=== PATIENT | female | born 1955 | race African-American/Black ===

== ENCOUNTER 2018-04-10 12:17 | Emergency (ER) | payer MEDICAID, OTHER ==
[~2018-04-10] VITALS: Ht 170.2 cm; Wt 122.5 kg
[~2018-04-10 12:17] MED LIST: ALBUTEROL SULF8.5 GM INH; CIPRO500 MG PO; GABAPENTIN300 MG ORAL; HYDROCHLOROTHIA25 MG ORAL; IBUPROFEN600 MG ORAL; IBUPROFEN800 MG ORAL; LOSARTAN POTASS50 MG ORAL; LYRICA75 M1 ORAL; PREDNISONE20 MG ORAL; VALIUM10 MG ORAL; VALIUM5 MG ORAL; VENTOLIN HFA18 GM INH; VICODIN 5-5001 EACH ORAL
[2018-04-10] MEDS ORDERED: AMLODIPINE BESY10 MG ORAL (12:33)
[2018-04-10] MEDS ORDERED: GABAPENTIN600 MG ORAL (12:33)
[2018-04-10] MEDS ORDERED: HYDROcodone/Acetamin 7.5/325 tab ORAL ONE (12:45)
--- NOTE | 2018-04-10 13:16 | Diagnostic Imaging Report ---
EXAM: XR Right Knee, 3 views CLINICAL HISTORY: PAIN TECHNIQUE: Three views of the right knee. COMPARISON: No relevant prior studies available. FINDINGS: Bones/joints: No visible displaced fracture. No dislocation. No osseous erosions. Mild degenerative narrowing, most prominent along the medial tibiofemoral compartment and the patellofemoral compartment. Visualized joint spaces otherwise appear unremarkable. Soft tissues: Unremarkable. No radiodense foreign bodies. No soft tissue gas lucencies. IMPRESSION: 1. No acute fracture or dislocation. 2. Mild tricompartment degenerative changes, most prominent in the medial tibiofemoral compartment and patellofemoral compartment.
--- NOTE | 2018-04-10 13:17 | Diagnostic Imaging Report ---
EXAM: XR Left Shoulder Complete, 2 or More Views CLINICAL HISTORY: PAIN TECHNIQUE: Two or more views of the left shoulder. COMPARISON: No relevant prior studies available. FINDINGS: Bones/joints: No visible fracture or dislocation. Normal alignment at the left glenohumeral and acromioclavicular joints. Mild degenerative changes at the left acromioclavicular joint. Soft tissues: Unremarkable. IMPRESSION: No acute fracture or dislocation. Mild degenerative changes in the left acromioclavicular joint.
--- NOTE | 2018-04-10 13:31 | Emergency Room Report ---
History of Present Illness General Chief Complaint: Pain Source: Patient Present Illness HPI 62-year-old female presents to the emergency department complaining of 10 out of 10 in severity progressive onset right knee, and left shoulder pain 2 weeks. Patient prefers denies trauma or fall but then she remembered starting to fall out of her chair 2 weeks ago but she caught herself for the most part. Patient states that about around the time that her pain started. Patient denies swelling in the affected extremity she does report some swelling in the right hand along the second to third knuckles. Patient states that this has happened multiple times in the past that swells up she again is having some pain in the pain and swelling resolve on their own. She reports only past medical history is high blood pressure she denies diabetes she reports some neuropathy. He states she has an appointment with her PCP on Thursday ( in 2 days ). Denies numbness tingling or loss of sensation or gross motor movements of the extremities, incontinence of bowel or bladder. Denies CP, Palpitations, LOC , AMS, dizziness, Changes in Vision, weakness or a sudden severe headache. Allergies: Coded Allergies: No Known Allergies (Unverified , 06/18/13) Patient History Past Medical History: see triage record Past Surgical History: none Pertinent Family History: none Last Menstrual Period: Unk date Now: No Reviewed Nursing Documentation: PMH: Agreed; PSxH: Agreed Nursing Documentation-PMH Hx Hypertension: Yes Review of Systems All Other Systems: negative except mentioned in HPI Physical Exam Vital Signs Date Time Temp Pulse Resp B/P (MAP) Pulse Ox O2 Delivery O2 Flow Rate FiO2 04/10/18 12:30 98.4 99 22 165/80 94 Room Air 98.4 Sp02 EP Interpretation: reviewed, normal General Appearance: no apparent distress, alert, GCS 15, non-toxic Head: normocephalic, atraumatic Eyes: bilateral eye normal inspection, bilateral eye PERRL ENT: hearing grossly normal, normal voice Neck: full range of motion Respiratory: lungs clear, normal breath sounds, speaking full sentences Cardiovascular #1: regular rate, rhythm, normal capillary refill Rectal: deferred Musculoskeletal: back normal, gait/station normal, normal range of motion, swelling - right knuckles, no tenderness, no erythema or bruising. pt. reports is recurrent., tender - TTP to the anterior right knee and the anteriolateral left shoulder, FROM of shoulder no clicking or deformity. Pt. has pain with right knee flexion, no instability noted, no obvious deformity, swelling or erythema Neurologic: alert, oriented x3, responsive, motor strength/tone normal, sensory intact, speech normal, grossly normal Psychiatric: judgement/insight normal Skin: normal color, no rash, warm/dry, well hydrated Lymphatic: no adenopathy Medical Decision Making PA Attestation Dr. Conroy is my supervising Physician whom patient management has been discussed with. Diagnostic Impression: Primary Impression: Shoulder pain, left Qualified Codes: M25.512 - Pain in left shoulder Additional Impressions: Knee pain, right Qualified Codes: M25.561 - Pain in right knee Degenerative joint disease involving multiple joints on both sides of body ER Course 62-year-old female presents to the emergency department complaining of 10 out of 10 in severity progressive onset right knee, and left shoulder pain 2 weeks. Patient prefers denies trauma or fall but then she remembered starting to fall out of her chair 2 weeks ago but she caught herself for the most part. Patient states that about around the time that her pain started. Patient denies swelling in the affected extremity she does report some swelling in the right hand along the second to third knuckles. Patient states that this has happened multiple times in the past that swells up she again is having some pain in the pain and swelling resolve on their own. She reports only past medical history is high blood pressure she denies diabetes she reports some neuropathy. He states she has an appointment with her PCP on Thursday ( in 2 days ). Denies numbness tingling or loss of sensation or gross motor movements of the extremities, incontinence of bowel or bladder. Denies CP, Palpitations, LOC , AMS, dizziness, Changes in Vision, weakness or a sudden severe headache. Ddx considered but are not limited to Fracture, dislocation, contusion, Sprain/ Strain/Spasm, RA, tendonitis, knee effusion , rotator cuff injury just to name a few. Vital signs: are WNL, pt. is afebrile H&PE are most consistent with musculoskeletal injury will perform imaging to r/ o fractures/dislocations. ORDERS: - X-rays Left Shoulder 3 views, and Right knee 3 views - negative for fx, Dislocation, or significant soft tissue injury, per preliminary read in ED, and signed by GUI Perrin, my supervising physician has reviewed, and agrees with my interpretation. ED INTERVENTIONS: - Medical [place] PO - Marcelo wrap applied by electronic warfare technical. Pt. remains neurovascularly intact. --Patient is provided with a cane and instructed on their use DISCHARGE: At this time pt. is stable for d/c to home. Will provide printed patient care instructions, and any necessary prescriptions. Care plan and follow up instructions have been discussed with the patient prior to discharge. Other X-Ray Diagnostic Results Other X-Ray Diagnostic Results #1: X-Ray ordered: Left SHoulder # of Views/Limited Vs Complete: 3 View Indication: Pain EP Interpretation: Yes GUI Xray: Interpretation reviewed, by supervising MD, and agrees with findings. Interpretation: no dislocation, no fractures, other - mild DJD Electronically Signed by: Jessy Perrin PA-C Other X-Ray Diagnostic Results #2: X-Ray ordered: Right Knee # of Views/Limited Vs Complete: 3 View Indication: Pain EP Interpretation: Yes PA Xray: Interpretation reviewed, by supervising MD, and agrees with findings. Interpretation: no dislocation, no soft tissue swelling, no fractures Impression: No acute disease Electronically Signed by: Jessy Perrin PA-C Last Vital Signs Date Time Temp Pulse Resp B/P (MAP) Pulse Ox O2 Delivery O2 Flow Rate FiO2 04/10/18 12:44 98.4 04/10/18 12:30 99 22 165/80 94 Room Air Disposition: HOME, SELF-CARE Condition: Stable Scripts Hydrocodone Bit/Acetaminophen 7.5-325* (NORCO 7.5-325*) 1 Each Tablet 1 TAB ORAL Q6H PRN for For Pain, #10 TAB 0 Refills Prov: Jessy Perrin 04/10/18 Patient Instructions: Joint Pain, Knee Pain, [id number], Shoulder Pain, Easy- to-Read Additional Instructions: Take medications as directed. Follow up with a Primary Care Provider in 3-5 days, and evaluate for DJD vs. RA even if your symptoms have resolved. --Please review list of primary care clinics, if you do not already have a primary care provider Return sooner to ED if new symptoms occur, or current symptoms become worse. Do not drink alcohol, drive, or operate heavy machinery while taking [facility] [place] as this may cause drowsiness. - Please note that this Emergency Department Report was dictated using Dragon academic support center director technology software, occasionally this can lead to erroneous entry secondary to interpretation by the dictation equipment. Jessy Perrin Apr 10, 2018 13:31
[2018-04-10] MEDS ORDERED: NORCO 7.5-3251 EACH ORAL (13:33)
[2018-04-10 14:12] VITALS: BP 172/91
== END 2018-04-10 14:12 | disposition home or self-care (01) ==
LOC: EMR 12:43
DX: M25.512 Pain in left shoulder (principal); M25.561 Pain in right knee; M15.9 Polyosteoarthritis, unspecified; I10 Essential (primary) hypertension
CPT/HCPCS: 99284

== ENCOUNTER 2018-11-24 17:19 | Emergency (ER) | payer MEDICAID ==
[~2018-11-24] VITALS: Ht 170.2 cm; Wt 77.1 kg
[~2018-11-24 17:19] MED LIST changes: +AMLODIPINE BESY10 MG ORAL; +GABAPENTIN600 MG ORAL; +NORCO 7.5-3251 EACH ORAL
[2018-11-24 17:25] VITALS: BP 187/87
--- NOTE | 2018-11-24 18:10 | NUR ---
ED Nurse Note: Pt came in due to discharge coming from her bellybutton and lower bad. pain for over a week. Denies fever at home. Noted redness and discharge from her belly button at this time.
--- NOTE | 2018-11-24 19:15 | Emergency Room Report ---
History of Present Illness General Chief Complaint: General Complaint Source: Patient Present Illness HPI 63-year-old female presents to the emergency department complaining of 8 out of 10 in severity pain, tenderness described as burning sensation, discharge coming from the umbilicus as times one week. Patient reports history of diabetes she states she is not her sugar regularly. Patient denies fevers or chills she reports attempts to clean with a Q-tip however she states that area of tenderness his been progressive in size. Patient denies bleeding. Denies rashes or lesions elsewhere on the skin. She states she has not applied any medications to the area. palpation aggravates pain, no relieving factors. pt. takes metformin. denies abdominal pain, nausea, vomiting, constipation or diarrhea. reports malodor to the d/c. Pt. denies fevers, chills or swollen tender lymph nodes. Denies lesions/rashes elsewhere on the body. Denies new medications or body washes or creams. Denies swelling of the lips, tongue , throat or airway. Denies wheezing, or shortness of breath. Denies recent travel , recent illness or ill contacts. denies blisters, oral lesions, or sloughing of the skin Allergies: Coded Allergies: No Known Allergies (Unverified , 06/18/13) Patient History Past Medical History: see triage record Past Surgical History: none Pertinent Family History: none Last Menstrual Period: 10 YEARS Now: No Reviewed Nursing Documentation: PMH: Agreed; PSxH: Agreed Nursing Documentation-PMH Past Medical History: No History, Except For Hx Hypertension: Yes Hx Diabetes: Yes - TYPE 2 Review of Systems All Other Systems: negative except mentioned in HPI Physical Exam Vital Signs Date Time Temp Pulse Resp B/P (MAP) Pulse Ox O2 Delivery O2 Flow Rate FiO2 11/24/18 17:25 98.4 80 16 187/87 91 Room Air Sp02 EP Interpretation: reviewed, normal General Appearance: no apparent distress, alert, GCS 15, non-toxic Head: normocephalic, atraumatic Eyes: bilateral eye normal inspection, bilateral eye PERRL ENT: hearing grossly normal, normal voice Neck: full range of motion Respiratory: lungs clear, normal breath sounds, speaking full sentences Cardiovascular #1: regular rate, rhythm Gastrointestinal: normal bowel sounds, non tender, soft, other - macerated appearance of the umbillicus with foul odorous thin white d/c. erythema noted. no blisters or vessicles. Rectal: deferred Genitourinary: normal inspection Musculoskeletal: back normal, gait/station normal, normal range of motion, non- tender Neurologic: alert, oriented x3, responsive, motor strength/tone normal, sensory intact, speech normal, grossly normal Psychiatric: judgement/insight normal Skin: normal color, warm/dry, well hydrated, rash - macerated appearance of the umbillicus with foul odorous thin white d/c. erythema noted. no blisters or vessicles. Lymphatic: no adenopathy Medical Decision Making PA Attestation Dr. Conroy is my supervising Physician whom patient management has been discussed with. Diagnostic Impression: Primary Impression: Cellulitis Qualified Codes: L03.818 - Cellulitis of other sites Additional Impression: Yeast dermatitis ER Course 63-year-old female presents to the emergency department complaining of 8 out of 10 in severity pain, tenderness described as burning sensation, discharge coming from the umbilicus as times one week. Patient reports history of diabetes she states she is not her sugar regularly. Patient denies fevers or chills she reports attempts to clean with a Q-tip however she states that area of tenderness his been progressive in size. Patient denies bleeding. Denies rashes or lesions elsewhere on the skin. She states she has not applied any medications to the area. palpation aggravates pain, no relieving factors. pt. takes metformin. denies abdominal pain, nausea, vomiting, constipation or diarrhea. reports malodor to the d/c. Pt. denies fevers, chills or swollen tender lymph nodes. Denies lesions/rashes elsewhere on the body. Denies new medications or body washes or creams. Denies swelling of the lips, tongue , throat or airway. Denies wheezing, or shortness of breath. Denies recent travel , recent illness or ill contacts. denies blisters, oral lesions, or sloughing of the skin Ddx considered but are not limited to cellulitis, scabies, shingles, varicella, dermatitis, urticaria, eczema, tinea, viral exanthem, SJS Vital signs: are WNL, pt. is afebrile H&PE are most consistent with cellulitis and most likely yeast dermatitis. ORDERS: none required at this time, the diagnosis is clinical ED INTERVENTIONS: None required at this time. DISCHARGE: At this time pt. is stable for d/c to home. Will provide printed patient care instructions, and any necessary prescriptions. Care plan and follow up instructions have been discussed with the patient prior to discharge. Last Vital Signs Date Time Temp Pulse Resp B/P (MAP) Pulse Ox O2 Delivery O2 Flow Rate FiO2 11/24/18 18:10 76 18 Room Air 11/24/18 17:25 98.4 187/87 91 Disposition: HOME, SELF-CARE Condition: Stable Referrals: Dominic Gutierrez MD (PCP) Patient Instructions: Cellulitis, [id number], Skin Yeast Infection Additional Instructions: Take medications as directed. * gentle cleaning with warm water daily, no other products. Follow up with a Primary Care Provider in 3-5 days, even if your symptoms have resolved. --Please review list of primary care clinics, if you do not already have a primary care provider Return sooner to ED if new symptoms occur, or current symptoms become worse. - Please note that this Emergency Department Report was dictated using [employer]ified [employer] remover technology software, occasionally this can lead to erroneous entry secondary to interpretation by the dictation equipment. Jessy Perrin Nov 24, 2018 19:15
[2018-11-24] MEDS ORDERED: CEPHALEXIN500 MG ORAL (19:19)
[2018-11-24] MEDS ORDERED: FLUCONAZOLE100 MG ORAL (19:19)
[2018-11-24] MEDS ORDERED: MUPIROCIN22 GM TOPIC (19:19)
[2018-11-24] MEDS ORDERED: NYSTATIN15 GM TOPIC (19:19)
[2018-11-24 19:35] VITALS: BP 160/88
--- NOTE | 2018-11-24 19:36 | NUR ---
ED Nurse Note: pt discharge instruction provided w/ prescription, pt education done via discussion and hand out, wrist band removed, pt advised to follow up with pcp in 2-3 days, pt verbalized understanding and agrees with plan, vss, ambulatory w/steady gait, resp even and unlabored.
== END 2018-11-24 19:37 | disposition home or self-care (01) ==
LOC: EMR 18:31
DX: L03.316 Cellulitis of umbilicus (principal); L30.8 Other specified dermatitis; I10 Essential (primary) hypertension; E11.9 Type 2 diabetes mellitus without complications
CPT/HCPCS: 99282

== ENCOUNTER 2019-02-16 17:39 | Emergency (ER) | payer MEDICAID ==
[~2019-02-16] VITALS: Ht 170.2 cm; Wt 124.7 kg
[~2019-02-16 17:39] MED LIST changes: +CEPHALEXIN500 MG ORAL; +FLUCONAZOLE100 MG ORAL; +MUPIROCIN22 GM TOPIC; +NYSTATIN15 GM TOPIC
--- NOTE | 2019-02-16 18:10 | NUR ---
ED Nurse Note:urine sent to labs
--- NOTE | 2019-02-16 18:34 | NUR ---
ED Nurse Note:blood sent to labs
[2019-02-16 18:40] LABS: APPEARANCE,URINE SLIGHTLY CLOUDY; BILIRUBIN, URINE NEGATIVE (NEGATIVE); GLUCOSE, URINE (UA) NEGATIVE (NEGATIVE); KETONES,URINE NEGATIVE (NEGATIVE); LEUKOCYTE ESTERASE ,URINE 3+ (NEGATIVE); NITRITE,URINE POSITIVE (NEGATIVE); PH,URINE 5 (4.5-8.0); PROTEIN,URINE 3+ (NEGATIVE); UROBILINOGEN,URINE NORMAL MG/DL (0.0-1.0)
[2019-02-16 18:42] LABS: COLOR,URINE YELLOW
[2019-02-16 18:45] VITALS: BP 189/86
[2019-02-16 18:53] LABS: BASOPHILS % (AUTO) 1.6 % (0.0-2.0); EOSINOPHILS % (AUTO) 3.7 % (0.0-3.0); HEMATOCRIT 40.8 % (37.0-47.0); HEMOGLOBIN 12.9 G/DL (12.0-16.0); LYMPHOCYTES % (AUTO) 22.3 % (20.0-45.0); MEAN CORPUSCULAR VOLUME 73 FL (80-99); MONOCYTES % (AUTO) 5.7 % (1.0-10.0); NEUTROPHILS % (AUTO) 66.7 % (45.0-75.0); PLATELET COUNT 279 K/UL (150-450); RED BLOOD COUNT 5.56 M/UL (4.20-5.40); WHITE BLOOD COUNT 11.6 K/UL (4.8-10.8)
[2019-02-16 18:54] LABS: ANION GAP 9 mmol/L (5-15); BLOOD UREA NITROGEN 13 mg/dL (7-18); CALCIUM 9.7 MG/DL (8.5-10.1); CARBON DIOXIDE 26 MMOL/L (21-32); CHLORIDE 100 MMOL/L (98-107); CREATININE 0.9 MG/DL (0.55-1.30); POTASSIUM 3.8 MMOL/L (3.5-5.1); SODIUM 135 MMOL/L (136-145)
[2019-02-16] MEDS ORDERED: cefTRIAXone 1 GM in NS 55 ML IVPB ONE (19:00)
--- NOTE | 2019-02-16 19:01 | Emergency Room Report ---
History of Present Illness General Chief Complaint: Female Urogenital Problems Source: Patient Present Illness HPI Patient presents with complaints of burning and discomfort with urination she also saw some evidence of blood in her urine patient was having increased cramping in the suprapubic area Also felt some discomfort lower back and presents to the ER She reports that her blood pressure medication makes her urinate more and as she was already urinating more frequently she did not take her medications today Denies any chest pain or shortness of breath denies any flank pain denies any fevers or rash Allergies: Coded Allergies: No Known Allergies (Unverified , 06/18/13) Patient History Past Medical History: see triage record Pertinent Family History: none Reviewed Nursing Documentation: PMH: Agreed; PSxH: Agreed Nursing Documentation-PMH Hx Hypertension: Yes Hx Diabetes: Yes - TYPE 2 Review of Systems All Other Systems: negative except mentioned in HPI Physical Exam Vital Signs Date Time Temp Pulse Resp B/P (MAP) Pulse Ox O2 Delivery O2 Flow Rate FiO2 02/16/19 17:57 98.1 89 16 198/109 94 Room Air Sp02 EP Interpretation: reviewed, normal General Appearance: well appearing, no apparent distress Head: normocephalic, atraumatic Eyes: bilateral eye PERRL, bilateral eye EOMI ENT: hearing grossly normal, normal pharynx, TMs + canals normal, uvula midline Neck: full range of motion, supple, no meningismus, no bony tend Respiratory: lungs clear, normal breath sounds, no rhonchi, no respiratory distress, no retraction, no accessory muscle use Cardiovascular #1: normal peripheral pulses, regular rate, rhythm, no edema, no gallop, no JVD, no murmur Gastrointestinal: normal bowel sounds, non tender, soft, no mass, no organomegaly, non-distended, no guarding, no hernia, no pulsatile mass, no rebound Genitourinary: no CVA tenderness Musculoskeletal: normal inspection Neurologic: oriented x3, responsive, director religious education III-XII nml as tested, motor strength/ tone normal, sensory intact Psychiatric: mood/affect normal Skin: normal color, no rash, warm/dry, palpation normal Lymphatic: normal inspection, no adenopathy Medical Decision Making Diagnostic Impression: Primary Impression: UTI (urinary tract infection) ER Course Given the patient's history and presentation multiple differentials and consideration Patient required extensive blood work Urine sample also at this time shows significant infection Patient provided with further IV hydration and antibiotics we did discuss further imaging also possible further inpatient care However the patient reports that she feels significantly better and does not want to be admitted to the hospital We will have initial conservative outpatient trial Labs Test 02/16/19 18:00 02/16/19 18:20 Urine Color Yellow Urine Appearance Slightly cloudy Urine pH 5 (4.5-8.0) Urine Specific Quinter 1.015 (1.005-1.035) Urine Protein 3+ (NEGATIVE) Urine Glucose (UA) Negative (NEGATIVE) Urine Ketones Negative (NEGATIVE) Urine Blood 5+ (NEGATIVE) Urine Nitrite Positive (NEGATIVE) Urine Bilirubin Negative (NEGATIVE) Urine Urobilinogen Normal MG/DL (0.0-1.0) Urine Leukocyte Esterase 3+ (NEGATIVE) Urine RBC 5-10 /HPF (0 - 2) Urine WBC 2-4 /HPF (0 - 2) Urine Squamous Epithelial Cells Few /LPF (NONE/OCC) Urine Amorphous Sediment Few /LPF (NONE) Urine Bacteria Few /HPF (NONE) White Blood Count 11.6 K/UL (4.8-10.8) Red Blood Count 5.56 M/UL (4.20-5.40) Hemoglobin 12.9 G/DL (12.0-16.0) Hematocrit 40.8 % (37.0-47.0) Mean Corpuscular Volume 73 FL (80-99) Mean Corpuscular Hemoglobin 23.1 PG (27.0-31.0) Mean Corpuscular Hemoglobin Concent 31.5 G/DL (32.0-36.0) Red Cell Distribution Width 14.0 % (11.6-14.8) Platelet Count 279 K/UL (150-450) Mean Platelet Volume 6.3 FL (6.5-10.1) Neutrophils (%) (Auto) 66.7 % (45.0-75.0) Lymphocytes (%) (Auto) 22.3 % (20.0-45.0) Monocytes (%) (Auto) 5.7 % (1.0-10.0) Eosinophils (%) (Auto) 3.7 % (0.0-3.0) Basophils (%) (Auto) 1.6 % (0.0-2.0) Sodium Level 135 MMOL/L (136-145) Potassium Level 3.8 MMOL/L (3.5-5.1) Chloride Level 100 MMOL/L (98-107) Carbon Dioxide Level 26 MMOL/L (21-32) Anion Gap 9 mmol/L (5-15) Blood Urea Nitrogen 13 mg/dL (7-18) Creatinine 0.9 MG/DL (0.55-1.30) Estimat Glomerular Filtration Rate > 60 mL/min (>60) Glucose Level 192 MG/DL (74-106) Calcium Level 9.7 MG/DL (8.5-10.1) Total Bilirubin 0.3 MG/DL (0.2-1.0) Aspartate Amino Transf (AST/SGOT) 13 U/L (15-37) Alanine Aminotransferase (ALT/SGPT) 24 U/L (12-78) Alkaline Phosphatase 122 U/L (46-116) Total Creatine Kinase 147 U/L (26-308) Creatine Kinase MB 2.6 NG/ML (0.0-3.6) Creatine Kinase MB Relative Index 1.7 Troponin I 0.006 ng/mL (0.000-0.056) Total Protein 8.2 G/DL (6.4-8.2) Albumin 3.3 G/DL (3.4-5.0) Globulin 4.9 g/dL Albumin/Globulin Ratio 0.7 (1.0-2.7) Lipase 85 U/L (73-393) Rhythm Strip Diag. Results EP Interpretation: yes Rate: 60 Rhythm: NSR, no PVC's, no ectopy Chest X-Ray Diagnostic Results Chest X-Ray Diagnostic Results : Chest X-Ray Ordered: Yes # of Views/Limited/Complete: 1 View Indication: Chest Pain EP Interpretation: Yes Interpretation: no consolidation, no effusion, no pneumothorax Impression: No acute disease Electronically Signed by: Barney Jerry DO Last Vital Signs Date Time Temp Pulse Resp B/P (MAP) Pulse Ox O2 Delivery O2 Flow Rate FiO2 02/16/19 18:45 98.1 88 23 189/86 99 Room Air Status: improved Disposition: HOME, SELF-CARE Condition: Improved Scripts Phenazopyridine Hcl* (PYRIDIUM*) 100 Mg Tablet 100 MG ORAL THREE TIMES A DAY for 5 Days, TAB Prov: Barney Jerry DO 02/16/19 Cephalexin* (KEFLEX*) 500 Mg Capsule 500 MG ORAL EVERY 6 HOURS for 10 Days, CAP Prov: Barney Jerry DO 02/16/19 Additional Instructions: Patient is provided with the discharge instructions notified to follow up with primary doctor in the next 2-3 days otherwise return to the er with any worsening symptoms. Please note that this report is being documented using DRAGON technology. This can lead to erroneous entry secondary to incorrect interpretation by the dictating instrument. Barney Jerry DO Feb 16, 2019 19:01
[2019-02-16 19:07] LABS: ALANINE AMINOTRANSFERASE 24 U/L (12-78); ALBUMIN 3.3 G/DL (3.4-5.0); ALBUMIN/GLOBULIN RATIO 0.7 (1.0-2.7); ALKALINE PHOSPHATASE 122 U/L (46-116); ASPARTATE AMINO TRANSFERASE 13 U/L (15-37); BILIRUBIN,TOTAL 0.3 MG/DL (0.2-1.0); CKMB 2.6 NG/ML (0.0-3.6); CREATINE KINASE 147 U/L (26-308)
[2019-02-16] MEDS ORDERED: CEPHALEXIN500 MG ORAL (19:35)
[2019-02-16] MEDS ORDERED: PHENAZOPYRIDIN100 MG ORAL (19:35)
[2019-02-16 19:45] VITALS: BP 164/73
--- NOTE | 2019-02-16 19:45 | NUR ---
ER DISCHARGE NOTE: Patient is cleared to be discharged per ERMD, pt is aox4, on room air, with stable vital signs. pt was given dc and prescription instructions, pt was able to verbalize understanding, pt id band and iv site removed without complications. pt is able to ambulate with steady gait. pt took all belongings.
--- NOTE | 2019-02-17 11:55 | Diagnostic Imaging Report ---
Indication: Chest pain Technique: XRAY Chest 1v Comparison: 10/18/2016 Findings: Heart size and mediastinal contours are within normal limits stable compared to the prior exam. There is no focal consolidation, pneumothorax or pleural effusion. Osseous structures demonstrate no acute abnormality. Impression: No radiographic evidence of acute cardiopulmonary disease.
== END 2019-02-16 19:45 | disposition home or self-care (01) ==
LOC: EMR 18:23
DX: N39.0 Urinary tract infection, site not specified (principal); E11.9 Type 2 diabetes mellitus without complications; I10 Essential (primary) hypertension; M54.5 Low back pain; R31.9 Hematuria, unspecified
CPT/HCPCS: 36415; 71045; 80053; 81003; 82550; 82553; 83690; 84484; 85025; 93005; 96365; 99284; J0696

== ENCOUNTER 2019-09-08 17:33 | Emergency (ER) | payer MEDICAID, OTHER ==
[~2019-09-08] VITALS: Ht 167.6 cm; Wt 122.5 kg
[~2019-09-08 17:33] MED LIST changes: +PHENAZOPYRIDIN100 MG ORAL
[2019-09-08] MEDS ORDERED: Aspirin Baby 81mg ORAL ONE (18:00)
--- NOTE | 2019-09-08 18:02 | Emergency Room Report ---
History of Present Illness General Chief Complaint: Chest Pain Source: Patient, Medical Record Present Illness HPI Disclaimer: Please note that this report is being documented using DRAGON technology. This can lead to erroneous entry secondary to incorrect interpretation by the dictating instrument. HPI: 64-year-old female with a history of hypertension, hyperlipidemia, diabetes , obesity presents for evaluation of chest pain. Symptoms began this morning and probably 6:30 AM while the patient was getting out of bed. She notes a sharp midsternal chest pain that sometimes radiates the left and exacerbated by movements of the upper extremities, bending and twisting motions and moving around in general. Denies any squeezing sensation. She notes intermittent shortness of breath and recent exertional dyspnea making it harder for her to walk her usual amount and gets winded going up and down the stairs. Denies any lower extremity swelling, recent long distance travel, immobilization, surgery, coagulopathies. No family history of heart disease. Does not smoke cigarettes. No prior incidences of similar chest pain. Has not had a cardiac work-up ever. PMH: Hypertension, hyperlipidemia, obesity, diabetes PSH: Denies Allergies: Denies Social Hx: Denies drug, alcohol or tobacco use Allergies: Coded Allergies: No Known Allergies (Unverified , 06/18/13) Nursing Documentation-PMH Past Medical History: No History, Except For Hx Hypertension: Yes Hx Diabetes: Yes - TYPE 2 Review of Systems All Other Systems: negative except mentioned in HPI Physical Exam Vital Signs Date Time Temp Pulse Resp B/P (MAP) Pulse Ox O2 Delivery O2 Flow Rate FiO2 09/08/19 17:42 97.9 73 18 178/95 (122) 99 Room Air General: Awake and alert, no acute distress HEENT: NC/AT. EOMI. PERRLA. Moist mucous membranes Neck: Supple, trachea midline Chest Wall: Tender to palpation over the sternum and anterior chest wall without deformity, no crepitus Cardiovascular: RRR. S1 and S2 normal. No murmur appreciated Resp: Normal work of breathing. No cough, wheezing or crackles appreciated Abdomen: Abdomen is soft, obese, nondistended. Nontender Skin: Intact. No abrasions, laceration or rash over the exposed skin MSK: Normal tone and bulk. Moving all extremities. No obvious deformity. Neuro: Awake and alert. Mentating appropriately. Medical Decision Making ER Course 64-year-old female presents for evaluation of chest pain beginning early this morning. The pain is reproducible and exacerbated by motion. There has been recent exertional dyspnea that is relieved by rest but the patient is not discussed with her PMD. There is no associated cough though it is pleuritic in nature. Differential includes but is not limited to URI, ACS, unstable angina, CHF, costochondritis, pulmonary embolism, pleurisy, pneumonia, GERD. Will start broad metabolic infectious and cardiac work-up. Will send a d-dimer though the patient is low risk for PE and DVT. Laboratory Tests Test 09/08/19 18:02 White Blood Count 9.6 K/UL (4.8-10.8) Red Blood Count 5.33 M/UL (4.20-5.40) Hemoglobin 12.7 G/DL (12.0-16.0) Hematocrit 40.1 % (37.0-47.0) Mean Corpuscular Volume 75 FL (80-99) L Mean Corpuscular Hemoglobin 23.9 PG (27.0-31.0) L Mean Corpuscular Hemoglobin Concent 31.8 G/DL (32.0-36.0) L Red Cell Distribution Width 12.7 % (11.6-14.8) Platelet Count 269 K/UL (150-450) Mean Platelet Volume 6.7 FL (6.5-10.1) Neutrophils (%) (Auto) 54.6 % (45.0-75.0) Lymphocytes (%) (Auto) 32.1 % (20.0-45.0) Monocytes (%) (Auto) 7.6 % (1.0-10.0) Eosinophils (%) (Auto) 4.5 % (0.0-3.0) H Basophils (%) (Auto) 1.1 % (0.0-2.0) D-Dimer 1.21 mg/L FEU (0.00-0.49) H Sodium Level 141 MMOL/L (136-145) Potassium Level 3.8 MMOL/L (3.5-5.1) Chloride Level 105 MMOL/L (98-107) Carbon Dioxide Level 28 MMOL/L (21-32) Anion Gap 8 mmol/L (5-15) Blood Urea Nitrogen 14 mg/dL (7-18) Creatinine 0.7 MG/DL (0.55-1.30) Estimate Glomerular Filtration Rate > 60 mL/min (>60) Glucose Level 216 MG/DL (74-106) H Calcium Level 9.3 MG/DL (8.5-10.1) Total Bilirubin 0.2 MG/DL (0.2-1.0) Aspartate Amino Transferase (AST) 12 U/L (15-37) L Alanine Aminotransferase (ALT) 28 U/L (12-78) Alkaline Phosphatase 142 U/L (46-116) H Troponin I 0.000 ng/mL (0.000-0.056) Pro-B-Type Natriuretic Peptide 533 pg/mL (0-125) H Total Protein 7.3 G/DL (6.4-8.2) Albumin 3.2 G/DL (3.4-5.0) L Globulin 4.1 g/dL Albumin/Globulin Ratio 0.8 (1.0-2.7) L EKG Diagnostic Results EKG Time: 17:59 Rate: normal Rhythm: NSR ST Segments: no acute changes Other Impression Sinus rhythm, normal axis, normal intervals, no ST segment changes. Rhythm Strip Diag. Results Rhythm Strip Time: 17:59 EP Interpretation: yes Rate: 60s Rhythm: NSR, no PVC's, no ectopy Chest X-Ray Diagnostic Results Chest X-Ray Diagnostic Results : Chest X-Ray Ordered: Yes # of Views/Limited/Complete: 1 View Indication: Chest Pain Interpretation: no consolidation, no effusion, no pneumothorax, no acute cardiopulmonary disease Impression: No acute disease Electronically Signed by: Electronically signed by Dr. Yarely Vides CT/MRI/US Diagnostic Results CT/MRI/US Diagnostic Results : Impression [facility] Patient: FREDERIC LYNN (Female) Age: 64 MR #: [id number] Status: ER Date: 09/08/19 19:55 Slices: 0 History: PE Priors: Tech: Exam request generated by [employer] interface Exams: CTA CHEST With Contrast Referring Luisa: DINORA^YARELY Ordering Phy: Yarely Vides MD Contrast: Accession Numbers: [id number], [id number] Preliminary Findings Only See Final Report For Complete Findings CTA CHEST With Contrast: No pulmonary embolus. No thoracic aortic dissection or aneurysm. Patchy groundglass opacities within the central right lower lobe which may be inflammatory or infectious. No pleural effusion or pneumothorax. Heart and pericardium are unremarkable. Subcentimeter mediastinal and hilar lymph nodes, likely reactive. No acute osseous abnormality. Radiologist: Kenyon Joshi MD Study ready at 20:08 and initial results transmitted at 20:16 *This report constitutes a preliminary interpretation only. Non-acute findings felt to be unrelated to the clinical presentation may not be discussed in this report. The study will be interpreted and a final report will be generated by the local Radiologist the following shift. To reach the hospital radiology department call [phone]. If a discrepancy is found between the preliminary and final interpretations of this study, please notify us via our Client Portal at [email or web address]. You can also fax this report with a description of the discrepancy, or include the final report, to our daytime fax number [phone]. If faxing, please indicate the severity of discrepancy using one of the following categories: [ ] 1 - Agree/Informational [ ] 2 - Unlikely to Affect Management [ ] 3 - Possible Eventual Change of Management [ ] 4 - Probable Immediate Change of Management For all other patient related information, please fax us at [phone] Reevaluation Time: 20:15 Last Vital Signs Date Time Temp Pulse Resp B/P (MAP) Pulse Ox O2 Delivery O2 Flow Rate FiO2 09/08/19 17:42 97.9 73 18 178/95 (122) 99 Room Air Reevaluation Impression Labs had returned largely within normal limits with a negative troponin however the d-dimer was elevated above our normal limit. A CTA of the chest was obtained which showed no evidence of pulmonary embolism or aortic dissection/ aneurysm but did show possible patchy groundglass opacities which may be inflammatory or infectious. The patient denies any systemic signs of infection and is elected not to be treated with antibiotics at this time. Her chest wall remains tender to palpation. Believe this is a musculoskeletal chest pain as the patient's EKG, chest x-ray, labs are reassuring. She does have some risk factors but can be followed up as an outpatient. Heart score is 3. I notified her PMD that she was in the emergency department today and can follow-up as an outpatient. Will prescribe NSAIDs. We discussed reasons to return to the emergency department. She understands and agrees with this treatment plan. Disposition: HOME, SELF-CARE Condition: Stable Scripts Acetaminophen* (ACETAMINOPHEN 325MG TABLET*) 325 Mg Tablet 650 MG ORAL Q4H PRN for For Pain, #30 TAB Prov: Yarely Vides MD 09/08/19 Ibuprofen* (MOTRIN*) 600 Mg Tablet 600 MG ORAL Q6H, #30 TAB 0 Refills Prov: Yarely Vides MD 09/08/19 Yarely Vides MD Sep 08, 2019 18:02
[2019-09-08 18:11] VITALS: BP 178/95
--- NOTE | 2019-09-08 18:17 | NUR ---
ED Nurse Note: Patient walked in to ER due to epigastric pain 04/11. States that has this pain almost a wee. AAO x4, VSS at this time, skin is warm to touch. Patient was placed in the gown, connected to the monitor.
[2019-09-08 18:28] LABS: BASOPHILS % (AUTO) 1.1 % (0.0-2.0); EOSINOPHILS % (AUTO) 4.5 % (0.0-3.0); HEMATOCRIT 40.1 % (37.0-47.0); HEMOGLOBIN 12.7 G/DL (12.0-16.0); LYMPHOCYTES % (AUTO) 32.1 % (20.0-45.0); MEAN CORPUSCULAR VOLUME 75 FL (80-99); MONOCYTES % (AUTO) 7.6 % (1.0-10.0); NEUTROPHILS % (AUTO) 54.6 % (45.0-75.0); PLATELET COUNT 269 K/UL (150-450); RED BLOOD COUNT 5.33 M/UL (4.20-5.40); RED CELL DISTRIBUTION WIDTH 12.7 % (11.6-14.8); WHITE BLOOD COUNT 9.6 K/UL (4.8-10.8)
[2019-09-08 18:43] LABS: ANION GAP 8 mmol/L (5-15); BLOOD UREA NITROGEN 14 mg/dL (7-18); CALCIUM 9.3 MG/DL (8.5-10.1); CARBON DIOXIDE 28 MMOL/L (21-32); CHLORIDE 105 MMOL/L (98-107); CREATININE 0.7 MG/DL (0.55-1.30); POTASSIUM 3.8 MMOL/L (3.5-5.1); SODIUM 141 MMOL/L (136-145)
[2019-09-08 18:57] LABS: ALANINE AMINOTRANSFERASE 28 U/L (12-78); ALBUMIN 3.2 G/DL (3.4-5.0); ALBUMIN/GLOBULIN RATIO 0.8 (1.0-2.7); ALKALINE PHOSPHATASE 142 U/L (46-116); ASPARTATE AMINO TRANSFERASE 12 U/L (15-37); BILIRUBIN,TOTAL 0.2 MG/DL (0.2-1.0)
[2019-09-08] MEDS ORDERED: Omnipaue 350mg/ml 100ml vial INJ PRN (19:15)
[2019-09-08 20:11] VITALS: BP 174/98
--- NOTE | 2019-09-08 20:17 | Diagnostic Imaging Report ---
Indication: Chest pain Technique: Continuous helical transaxial imaging of the chest was obtained from the thoracic inlet to the upper abdomen during rapid intravenous contrast administration. Arterial phase of enhancement obtained. Coronal 2-D reformats were also obtained and maximum intensity projection images in multiple planes. Study obtained in a Siemens sensation [address] Automatic Exposure Control was utilized. Total Dose length Product (DLP): 816.[address] Dose Index Volume (CTDIvol): 124.5 mGy Comparison: None Findings: The pulmonary artery is well opacified and shows no filling defects. There is no adenopathy, pleural or pericardial effusions are identified. There is no aortic dissection or aneurysm identified within the chest. The lungs demonstrate mild groundglass opacification in the perihilar regions nonspecific. There is minimal basal atelectasis present. Hiatal hernia is noted. Generalized cardiomegaly is present. Visualized part of the upper abdomen is unremarkable. There is beam starvation artifact degrading image quality. IMPRESSION: No evidence of pulmonary embolus, aortic dissection or aneurysm. Hiatal hernia Mild perihilar density nonspecific. Limitation due to artifact probably related to body habitus. [facility] has communicated the preliminary results to the Emergency Department. Their findings are largely concordant with this report. The CT scanner at [facility] is accredited by the [employer] and the scans are performed using dose optimization techniques as appropriate to a performed exam including Automatic Exposure control.
[2019-09-08] MEDS ORDERED: IBUPROFEN600 MG ORAL (20:35)
[2019-09-08] MEDS ORDERED: ACETAMINOPHEN325 M1 ORAL (20:35)
[2019-09-08 20:50] VITALS: BP 174/98
--- NOTE | 2019-09-09 10:42 | Diagnostic Imaging Report ---
Indication: Chest pain Comparison: 02/16/2019 A single view chest radiograph was obtained. Findings: Cardiomediastinal appearance is within normal limits for age. The lungs are clear. Pulmonary vascularity is appropriate. The diaphragmatic contour is smooth and costophrenic angles are sharp. No pleural effusions are identified. The bones are unremarkable. Impression: No acute findings
--- NOTE | 2019-09-10 15:24 | Cardiology Report ---
APPROVED REPORT EKG Measurement Heart [id number] Normal sinus rhythm Normal ECG
== END 2019-09-08 20:51 | disposition home or self-care (01) ==
LOC: EMR 18:00
DX: R07.89 Other chest pain (principal); I10 Essential (primary) hypertension; E78.5 Hyperlipidemia, unspecified; E11.9 Type 2 diabetes mellitus without complications
CPT/HCPCS: 36415; 71045; 71275; 80053; 83880; 84484; 85025; 85379; 93005; Q9967; Z7502; 99284